=== PATIENT | female | born 1930 | race Caucasian/White ===

== ENCOUNTER → 2019-08-14 | Outpatient (CLI) | payer MEDICARE, OTHER ==
--- NOTE | 2019-08-14 16:08 | US ---
EXAMINATION TYPE: US kidneys/renal and bladder DATE OF EXAM: 08/14/2019 COMPARISON: NONE CLINICAL HISTORY: R31.1 Microhematuria. Microhematuria EXAM MEASUREMENTS: Right Kidney: 9.9 x 3.7 x 3.3 cm Left Kidney: 9.8 x 5.0 x 4.0 cm Right Kidney: cystic area lower pole = 1.0 x 0.8 x 0.8cm Left Kidney: no evidence of hydronephrosis Bladder: appears wnl Bilateral Jets seen: yes Incidental finding: splenomegaly, spleen = 13.6cm IMPRESSION: 1. Simple cyst inferior pole right kidney 2. Splenomegaly
== END ==
LOC: RADUSWWP 09:49
PROVIDERS: ATTEND Urology
DX: N28.1 Cyst of kidney, acquired (principal); R16.1 Splenomegaly, not elsewhere classified
CPT/HCPCS: 76770